=== PATIENT | male | born 1970 | race Hispanic/Latino ===

== ENCOUNTER 2018-03-03 20:59 | Emergency (ER) | payer BC, SELFPAY ==
[2018-03-03] MEDS ORDERED: KETOROLAC 30 MG/ML INJ ONE (21:45)
[2018-03-03] MEDS ORDERED: ONDANSETRON 4 MG/2 ML VIAL ONE (21:46)
[2018-03-03 21:48] LABS: Absolute Monocytes 0.8 K/uL (0.1-1.3); Absolute Neutrophil 10.5 K/uL (1.8-8.0); Basophils % 0.4 % (0-1.3); Eosinophils % 0.9 % (0-4.4); Lymphocytes % 15.1 % (15.3-44.8); MPV 8.9 fL (7.6-11.3); Monocytes % 6.1 % (3.3-12.3); RBC Red Blood Cell Count 4.46 M/uL (4.33-5.43)
[2018-03-03 22:12] LABS: ALT/SGPT 40 U/L (12-78); AST/SGOT 30 U/L (15-37); Albumin 3.8 g/dL (3.4-5.0); Alkaline Phosphatase 67 U/L (45-117); BUN Blood Urea Nitrogen 15 mg/dL (7-18); Bicarbonate 27 mmol/L (21-32); Bilirubin Direct < 0.1 mg/dL (0-0.2); Bilirubin Total 0.3 mg/dL (0.2-1.0); Glucose Level 98 mg/dL (74-106); Lipase 132 U/L (73-393); Potassium 3.7 mmol/L (3.5-5.1); Sodium Level 141 mmol/L (136-145)
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
[2018-03-04 01:32] LABS: Urine Blood 2+ (NEG); Urine Glucose NEGATIVE (NEG); Urine Protein 1+ (NEG); Urine Specific Gravity 1.015 (1.005-1.030); Urine pH 7.5 (5.0-7.0)
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
== END 2018-03-04 00:25 | disposition home or self-care (01) ==
LOC: ER 20:59
DX: S16.1XXA Strain of muscle, fascia and tendon at neck level, initial encounter (principal); V29.9XXA Motorcycle rider (driver) (passenger) injured in unspecified traffic accident, initial encounter; S63.502A Unspecified sprain of left wrist, initial encounter; M79.605 Pain in left leg; M79.604 Pain in right leg; J32.9 Chronic sinusitis, unspecified; Z87.891 Personal history of nicotine dependence
CPT/HCPCS: 36415; 70450; 71260; 72125; 72170; 74177; 80048; 80076; 81003; 83690; 85025; 86850; 86900; 86901; 96374; 96375; 99284; J2405; Q9967